=== PATIENT | female | born 1960 | race Caucasian/White ===

== ENCOUNTER 2017-09-29 02:06 | Inpatient (IN) | payer OTHER ==
[~2017-09-29] VITALS: Ht 154.9 cm; Wt 49.9 kg
[~2017-09-29 02:06] MED LIST: ADVAIR 100-501 EACH INH; ADVAIR DISKU 11 UNIT INH; DILAUDID2 MG PO; DOK100 M1 PO; MIRALAX17 GM PO; MS CONTIN15 M1 PO; ZOFRAN 4 MG TABL4 MG PO
--- NOTE | 2017-09-29 08:05 | Admission Core Measures ---
Acute Coronary Syndrome (CM) ACS Core Measures Acute Coronary Syndrome Diagnosis No Congestive Heart Failure (NEW) CHF Core Measures Congestive Heart Failure Diagnosis No Cerebrovascular Accident (NEW) CVA Core Measures CVA/TIA Diagnosis No Venous Thromboembolism VTE Core Anant (View Protocol) VTE Risk Factors Surgery No Mechanical VTE Prophylaxis d/t N/A MechProphylax Ordered No VTE Pharm Prophylaxis d/t NA PharmProphylax ordered Problem List As ranked by this Provider includes Assessment & Plan 1. Primary osteoarthritis of right hip HOME MEDS Home Med List Fluticasone-Salmeterol (Advair 100-50 Diskus) 100 MCG-50 MCG/DOSE BLST.W.DEV 1 PUFF INH BID ASTHMA (Reported)
--- NOTE | 2017-09-29 08:08 | Surg Short-stay <48hrs Dis Sum ---
Visit Information Visit Dates Admission Date: 09/29/17 Discharge Date: 09/29/17 Surgical Short Stay DC Summary Admission Diagnosis: Primary osteoarthritis right hip Final Diagnosis: Same, status post right total hip arthroplasty Procedure(s): Right total hip arthroplasty Summary/Significant Findings: Patient was admitted to the hospital for an elective total joint replacement. Procedure was tolerated well and patient was transferred to a general surgical floor. Diet was advanced and tolerated. Physical therapy performed evaluation and treatment. At time of hospital discharge, vital signs were stable, neurovascular status was intact, and pain was controlled with the use of oral pain medications. Condition at Discharge: Stable Discharge Disposition: home health services Discharge instructions provided to patient/family: Yes Post discharge follow-up plan: Follow up with Dr. Aragon in 6 weeks from date of surgery. Please call his office to schedule/confirm this appointment.
--- NOTE | 2017-09-29 09:02 | Patient Discharge Instructions ---
Discharge Instructions General Discharge Information You were seen/treated for: Primary Right hip osteoarthritis You had these procedures: Right total hip arthroplasty Watch for these problems: Increasing pain despite the use of pain medication Increasing redness, warmth or swelling Drainage of any type from incision Inability to bear weight on operative leg Persistent nausea and vomiting Fever greater than 101.5 degrees Other wound care: Please keep wound clean and dry. No ointments or lotions of any type on or near incision. Your dressing will be changed by your nurse on the second day after your surgery. Daily dry dressing changes are recommended each day thereafter. You may shower 48hr after surgery. Do not soak your wound- no tub baths or swimming. Special Instructions: Aspirin: You are taking this medication to help prevent blood clot formation. Please take with food to protect your stomach lining. Take as directed. Protonix (pantoprazole): Take this medication to protect your stomach lining while taking high dose aspirin. Constipation: Pain medication can cause constipation. It is recommended that you take Colace and miralax daily. You may discontinue this medication if you develop loose stool or diarrhea. If you wish to continue this medication, it is available over the counter. If you are unable to move your bowels or pass gas after several days, please contact your doctor. Diet Continue normal diet: Yes Recommended Diet: Regular Activity Activity Limited to: Weight bear as tolerated Additional ACTIVITY Info: Use assistive devices as needed Acute Coronary Syndrome Inclusion Criteria At DC or during hospital stay patient has or had the following: ACS DIAGNOSIS No Discharge Core Measures Meds if any: Prescribed or Continued at Discharge Meds if any: NOT Prescribed or Continued at Discharge Congestive Heart Failure Inclusion Criteria At DC or during hospital stay patient has or had the following: CHF DIAGNOSIS No Discharge Core Measures Meds if any: Prescribed or Continued at Discharge Meds if any: NOT Prescribed or Continued at Discharge Cerebrovascular accident Inclusion Criteria At DC or during hospital stay patient has or had the following: CVA/TIA Diagnosis No Discharge Core Measures Meds if any: Prescribed or Continued at Discharge Meds if any: NOT Prescribed or Continued at Discharge Venous thromboembolism Inclusion Criteria VTE Diagnosis No VTE Type NONE VTE Confirmed by (Test) NONE Discharge Core Measures - Per Current guidelines, there needs to be overlap - treatment for the first 5 days of Warfarin therapy. - If discharged on Warfarin prior to 5 days of - overlap therapy, the patient will need to be - assessed for post discharge needs including - *Post discharge parental anticoagulation - *Warfarin and/or parental anticoagulation education - *Follow up date to check INR post discharge At least 5 days overlap therapy as Inpatient No Meds if any: Prescribed or Continued at Discharge Note: Overlap Therapy is Warfarin and Anticoagulant Meds if any: NOT Prescribed or Continued at Discharge
[2017-09-29] MEDS ORDERED: COLACE100 M1 PO (09:07)
[2017-09-29] MEDS ORDERED: ASPIRIN EC325 M2 PO (09:07)
[2017-09-29] MEDS ORDERED: MS CONTIN15 M3 PO (09:07)
[2017-09-29] MEDS ORDERED: MIRALAX17 G1 PO (09:07)
[2017-09-29] MEDS ORDERED: PROTONIX20 M1 PO (09:07)
[2017-09-29] MEDS ORDERED: DILAUDID2 M1 PO (09:07)
--- NOTE | 2017-09-29 10:35 | RADIOLOGY REPORT ---
EXAMINATION: XR HIP, RIGHT CLINICAL INFORMATION: Right total hip arthroplasty COMPARISON: None TECHNIQUE: Two views of the right hip. FINDINGS: Patient is status post right total hip arthroplasty. Hardware components appear well-seated and in anatomic alignment. No acute periprosthetic fracture is seen. Adjacent soft tissue gas is noted. IMPRESSION: Status post total hip arthroplasty with expected postoperative changes.
[2017-09-29 11:51] VITALS: BP 112/70
--- NOTE | 2017-09-29 12:02 | Operative Report ---
Operative/Inv Procedure Report Surgery Date: 09/29/17 Name of Procedure: Right total hip replacement Pre-Operative Diagnosis: Primary right hip DJD Post-Operative Diagnosis: Same Estimated Blood Loss: 200 Surgeon/Demurrage Clerk: Venu Aragon MD Anesthesia: block Operative/Procedure Note Note: Description of Procedure: The patient was taken to the operating room and positively identified. After induction of spinal anesthesia and administration of appropriate pre-operative antibiotics, the patient was positioned supine on the operating room table and all bony prominences were well padded. After performing a surgical timeout, the right lower extremity was prepped and draped in the usual sterile fashion. A direct anterior approach was made to the right hip. The incision was carried sharply through superficial soft tissues to the level of the fascia. Meticulous hemostasis was maintained with Bovie electocautery. The fascia over the tensor fascia magy muscle was opened sharply and the interval between the TFL and the sartorius was entered bluntly taking care to stay lateral to the lateral femoral cutaneous nerve. Retractors were placed around the femoral neck and the pericapsular fat was identified. The ascending branches of the lateral femoral circumflex vessels were identified and carefully coagulated. The pericapsular fat and anterior capsule were then resected. A napkin ring osteotomy was performed and the femoral head was removed without difficulty. Attention was then turned to the acetabulum. After appropriate placement of retractors, the acetabulum was exposed. Soft tissue was cleaned from the acetabular margin and notch. Overhanging osteophytes were removed and the teardrop was exposed. The acetabulum was then sequentially reamed to accept a 52 mm Toni Tritanium hemispherical solid shell. This was impacted into place in the appropriate position and fitted with a 32 mm Trident X3 zero degree polyethylene insert. Attention was then turned to the femur. After performing the appropriate ligament releases, the proximal femur was exposed. It was then sequentially broached to accept a size 3 [place] Accolade II stem. This was trialed for leg length and stability. The trial component was removed and the final component was impacted into place. The trunnion was carefully cleaned and fit with a 32 mm, +4 Biolox delta ceramic femoral head. The hip was reduced and put through a full range of motion and found to be stable. The articular space was then irrigated with sterile saline. The periarticular soft tissues were infilitrated with Marcaine. The fascial layer was closed with interrupted #1 vicryl suture and the skin was re-approximated with interrupted 2 -0 vicryl. The skin was closed with a running 3-0 V-Lock suture. Steri-strips and a sterile dressing were applied. The patient was awakened and taken to the recovery room in satisfactory condition.
[2017-09-29 14:03] VITALS: BP 100/62
[2017-09-29] MEDS ORDERED: ZOFRAN ODT4 M1 SL (15:26)
== END 2017-09-29 16:10 | disposition home health service (06) | DRG 470 ==
LOC: SDA 02:06 → ENRESERV 10:33 → ENTRNSPT 11:09 → 2NA 11:11 → EDTRNSPTSTS 11:17 → EDTRNSPT 11:17 → CMPTRNSPT 11:32 → 2NA 16:10 → ENTRNSPT 16:11 → CMPTRNSPT 16:24
PROC: 0SR904A Replacement of Right Hip Joint with Ceramic on Polyethylene Synthetic Substitute, Uncemented, Open Approach (ICD-10-PCS; principal; 2017-09-29)
DX: M16.11 Unilateral primary osteoarthritis, right hip (principal); I08.2 Rheumatic disorders of both aortic and tricuspid valves; E03.9 Hypothyroidism, unspecified; J45.909 Unspecified asthma, uncomplicated
CPT/HCPCS: 2NASP; 73502-RT; 97116-GO; 97161-GP; J0690; J0735; J2405; J2550; J3490

== ENCOUNTER 2017-10-17 00:23 | Emergency (ER) | payer OTHER ==
[~2017-10-17] VITALS: Ht 154.9 cm; Wt 49.9 kg
[~2017-10-17 00:23] MED LIST changes: +ASPIRIN EC325 M2 PO; +COLACE100 M1 PO; +DILAUDID2 M1 PO; +MIRALAX17 G1 PO; +MS CONTIN15 M3 PO; +PROTONIX20 M1 PO; +ZOFRAN ODT4 M1 SL
[2017-10-17 00:39] VITALS: BP 153/74
--- NOTE | 2017-10-17 00:53 | ED ANIMAL BITE/WOUND CHECK ---
History of Present Illness General Chief Complaint: General Adult Stated Complaint: "UM I BELIEVED MY INCISION IS INFECTED" Source: patient, old records Exam Limitations: no limitations Vital Signs & Intake/Output Vital Signs & Intake/Output Vital Signs Date Time Temp Pulse Resp B/P B/P Pulse O2 O2 Flow FiO2 Mean Ox Delivery Rate 10/17 0039 96.7 79 16 153/74 100 Room Air Room Air Allergies Coded Allergies: Antihistamines - Alkylamine (PER PT HAD RASH FROM ACTIFED & APAP COLD & SINUS. OK W APAP 12/10/15) Antihistamines - Ethanolamine (PER PT HAD RASH FROM ACTIFED & APA COLD & SINUS. OK W/APAP 12/10/15) Antihistamines - Ethylenediamine (PER PT HAD RASH FROM ACTIFED & APAP COLD & SINUS. OK W/APAP 12/10/15) penicillin G (hives 09/27/17) Reconcile Medications Aspirin (Ecotrin*) 325 MG TABLET.DR 1 TAB PO BID ANTICOAGULATION Cephalexin (Keflex) 500 MG CAPSULE 1 CAP PO TID INFECTION Docusate Sodium (Colace) 100 MG CAPSULE 1 CAP PO BID STOOL SOFTENER STOP TAKING IF YOU DEVELOP LOOSE STOOL/DIARRHEA Fluticasone-Salmeterol (Advair 100-50 Diskus) 100 MCG-50 MCG/DOSE BLST.W.DEV 1 PUFF INH BID ASTHMA (Reported) Hydromorphone HCl (Dilaudid) 2 MG TABLET 1-2 TAB PO Q4-6 PRN PRN PAIN Morphine Sulfate (Ms Contin) 15 MG TABLET.ER 15 MG PO BID POSTOP PAIN Ondansetron (Zofran Odt) 4 MG TAB.RAPDIS 1 TAB SL TID PRN NAUSEA/VOMITING Pantoprazole Sodium (Protonix) 20 MG TABLET.DR 1 TAB PO DAILY GI PROTECTION Polyethylene Glycol 3350 (Miralax) 17 GRAM POWD.PACK 1 PAC PO DAILY CONSTIPATION dissolve in water. STOP TAKING IF YOU DEVELOP LOOSE STOOL/DIARRHEA Triage Note: 57YO FEMALE TO TRIAGE W/CO ?R HIP INFECTED INCISION. HX R HIP 09/29/17. Triage Nurses Notes Reviewed? yes Onset: Abrupt Duration: day(s): (2) Timing: recent history Severity: mild No Modifying Factors: none HPI: This is a 49-year-old female status post right hip replacement on September 29 Dr. Plata presents to the ER with chief complaint of irritation and some redness near the wound last 2 days. No fever chills or shakes. No nausea or vomiting. She is worried that the area may becoming infected. No drainage from the room. She is due to have her postop appointment 6 weeks after the surgery. She states that she had some allergy to adhesive and Steri-Strips off and there is some erythema but this is a new area. No difficulty ambulate. She was discharged the same cancer surgery. Past History Travel History Traveled to [place] past 21 day No Medical History Any Pertinent Medical History? see below for history Neurological: NONE EENT: NONE Cardiovascular: MURMUR Respiratory: asthma Gastrointestinal: NONE Hepatic: NONE Renal: NONE Musculoskeletal: osteoarthritis Psychiatric: NONE Endocrine: NONE Blood Disorders: NONE Cancer(s): NONE SAT INSTRUCTOR/Reproductive: NONE History of MRSA: No History of VRE: No History of CDIFF: No Influenza Vaccine: 06/20/17 Surgical History Surgical History: cholecystectomy, tubal ligation, RIGHT HIP ORIF 09/29/17 Psychosocial History Who do you live with Spouse What is your primary language Bolivian Tobacco Use: Never used Family History Hx Contributory? No Review of Systems Review of Systems Constitutional: Denies: chills, fever. EENTM: Reports: no symptoms. Respiratory: Denies: cough, short of breath, stridor. Cardiovascular: Denies: chest pain, palpitations. GI: Denies: abdominal pain. Genitourinary: Reports: no symptoms. Musculoskeletal: Reports: see HPI. Skin: Reports: no symptoms. Neurological/Psychological: Reports: no symptoms. Hematologic/Endocrine: Denies: bruising, bleeding, polyuria, polydipsia. Immunologic/Allergic: Denies: splenectomy. All Other Systems: Reviewed and Negative Physical Exam Physical Exam General Appearance: alert, awake, mild distress, thin Head: atraumatic Eyes: Bilateral: PERRL, EOMI. Ears, Nose, Throat: normal pharynx, normal ENT inspection, hearing grossly normal Neck: normal inspection, supple Respiratory: normal breath sounds Cardiovascular: regular rate/rhythm Peripheral Pulses: 2+ dorsalis pedis (R), 2+ dorsalis pedis (L) Gastrointestinal: soft, non-tender Back: normal inspection Extremities: normal range of motion, WELL HEALING RIGHT HIP INCISION, MILD ERYTHEMA MID INCISION, NO DRAINAGE OR FLUCTUANCE, INCISION INTACT, NO DEHISENCE Neurologic/Psych: awake, alert, oriented x 3, normal mood/affect Skin: intact, normal color, warm/dry Lymphatic: no anterior cervical lynn Diagram Body: 1) HEALING INCISION 2) MILD ERYTHEMA Progress Differential Diagnosis: cellulitis, joint infection, WOUND INFECTION, LOCAL REACTION Plan of Care: Orders Procedure Date/time Status C-REACTIVE PROTEIN 10/17 52 Complete CBC WITHOUT DIFFERENTIAL 10/17 52 Complete Laboratory Tests 10/17/17112: C-Reactive Prot, Quant < 0.5, CBC w Diff NO MAN DIFF REQ, RBC 3.95 L, MCV 84.8, MCH 29.1, MCHC 34.3, RDW 13.1, MPV 8.0, Gran % 58.7, Lymphocytes % 30.2, Monocytes % 6.9, Eosinophils % 3.3, Basophils % 0.9, Absolute Granulocytes 4.4, Absolute Lymphocytes 2.3, Absolute Monocytes 0.5, Absolute Eosinophils 0.2, Absolute Basophils 0.1 1:39 AM D/W SURGICAL ASHLI CRUZ. WILL INFORM DR KUMAR THAT PATIENT STARTED ON KEFLEX AND WILL FOLLOW UP WITH HIM IN THE OFFICE THIS WEEK. Diagnostic Imaging: Viewed by Me: Radiology Read. Discussed w/RAD: Radiology Read. Radiology Impression: PATIENT: BEATA GUZMAN PRESENT AGE: 57 PATIENT ACCOUNT NO: [id number] : 58 LOCATION: [facility] ORDERING PHYSICIAN: Pricilla Barroso MD SERVICE DATE: 10/17/17 EXAM TYPE: RAD - XRY-HIP 2-3 VIEWS, RIGHT EXAMINATION: XR HIP, RIGHT CLINICAL INFORMATION: Right hip irritation end pain status post replacement. COMPARISON: 09/29/2017 TECHNIQUE: Two views of the right hip. FINDINGS: There is a total right hip arthroplasty. The femoral head component articulates appropriately with the acetabular component. No periprosthetic lucency or fracture. The visualized right hemipelvis is intact. Resolution of the previous soft tissue gas. No soft tissue abnormality seen. IMPRESSION: Appropriate alignment of the right total hip arthroplasty without surrounding abnormalities. DICTATED BY: Osman ALEMAN, Travis DATE/TIME DICTATED:10/17/17126 LOAD OUT PERSON:ESTEBAN DATE/TIME TRANSCRIBED:10/17/17126 CONFIDENTIAL, DO NOT COPY WITHOUT APPROPRIATE AUTHORIZATION. <Electronically signed in Other Vendor System> SIGNED BY: Osman ALEMAN,Travis 10/17/17 0131 Departure Departure Time of Disposition: 132 Disposition: HOME OR SELF CARE Condition: Stable Clinical Impression Primary Impression: Wound infection Referrals: Aletha ALEMAN,Penny (PCP/Family) Additional Instructions: TAKE THE KEFLEX DIRECTED FOLLOW UP WITH DR KUMAR IN THE OFFICE RETURN TO THE ER FOR ANY CHANGING OR WORSENING SYMPTOMS Departure Forms: Customer Survey General Discharge Information Prescriptions: Current Visit Scripts Cephalexin (Keflex) 1 CAP PO TID #30 CAP
[2017-10-17 01:29] LABS: ABSOLUTE BASOPHIL COUNT 0.1 /CUMM (0.0-0.2); ABSOLUTE EOSINOPHIL COUNT 0.2 /CUMM (0.0-0.7); ABSOLUTE GRANULOCYTE CT 4.4 /CUMM (1.4-6.5); ABSOLUTE LYMPH COUNT 2.3 /CUMM (1.2-3.4); ABSOLUTE MONOCYTE COUNT 0.5 /CUMM (0.10-0.60); BASOPHIL % 0.9 % (0.0-2.0); EOSINOPHIL % 3.3 % (0-5); GRANULOCYTE % 58.7 % (42.2-75.2); HEMATOCRIT 33.4 % (37-47); MEAN CORPUSCULAR HGB 29.1 PG (27.0-31.0); MEAN CORPUSCULAR HGB CONC 34.3 G/DL (33.0-37.0); MEAN CORPUSCULAR VOLUME 84.8 FL (81.0-99.0); PLATELET COUNT 434 /CUMM (130-400); RBC DISTRIBUTION WIDTH 13.1 % (11.5-14.5); RED BLOOD CELL CT 3.95 /CUMM (4.20-5.40); WHITE BLOOD CELL COUNT 7.6 /CUMM (4.8-10.8)
--- NOTE | 2017-10-17 01:31 | RADIOLOGY REPORT ---
EXAMINATION: XR HIP, RIGHT CLINICAL INFORMATION: Right hip irritation end pain status post replacement. COMPARISON: 09/29/2017 TECHNIQUE: Two views of the right hip. FINDINGS: There is a total right hip arthroplasty. The femoral head component articulates appropriately with the acetabular component. No periprosthetic lucency or fracture. The visualized right hemipelvis is intact. Resolution of the previous soft tissue gas. No soft tissue abnormality seen. IMPRESSION: Appropriate alignment of the right total hip arthroplasty without surrounding abnormalities.
[2017-10-17] MEDS ORDERED: KEFLEX500 M1 PO (01:39)
== END 2017-10-17 01:52 ==
LOC: ERH 00:23
PROVIDERS: Emergency Medicine
DX: T81.4XXA Infection following a procedure, initial encounter (principal)
CPT/HCPCS: 73502-RT